=== PATIENT | female | born 1990 | race Caucasian/White ===

== ENCOUNTER 2016-09-02 17:30 | Emergency (ER) | payer OTHER ==
[~2016-09-02] VITALS: Ht 157.5 cm; Wt 108.4 kg
[~2016-09-02 17:30] MED LIST: INSDGI SC; NVLGI SC
[2016-09-02 17:33] VITALS: BP 145/91; PULSE 122; TEMP 36.9; O2SAT 97; Ht 157.5 cm; Wt 108.4 kg
[2016-09-02] MEDS ORDERED: SULFAMETHOXAZOLE/TRIMETHOPRIM DS 800/160MG TAB PO STA (17:56)
[2016-09-02] MEDS ORDERED: CEPHALEXIN MONOHYDRATE 250 MG CAP PO ONE (18:00)
[2016-09-02] MEDS ORDERED: NVLGI/PEN SC (18:06)
[2016-09-02] MEDS ORDERED: INSU1.2I SC (18:06)
[2016-09-02] MEDS ORDERED: HYDR-5688 PO (18:09)
[2016-09-02] MEDS ORDERED: CEPH500C PO (18:09)
[2016-09-02] MEDS ORDERED: SULF800T23 PO (18:09)
--- NOTE | 2016-09-02 18:09 | EMERGENCY ROOM VISIT NOTE ---
ED Visit Note First contact with patient: 17:37 Chief Complaint: Lumps Under Armpits History of Present Illness: Patient is a 26-year-old female who presents to the emergency department for evaluation of painful lumps under the LEFT armpit. She reports that 5 days ago she noticed a small lump to the affected area which was tender with palpation. Days ago she noticed a second lump developing. She does have a history of abscesses to her buttocks. She has never had abscesses in her axilla before. She is a diabetic. She reports that her blood sugars have actually been running a little lower than normal. She's had no fevers or chills. There is no numbness or tingling into the distal extremity. She did not attempt to drain the area. The patient rates her current discomfort as an 8 /10. She is tried nothing [id number] for her symptoms. She denies any neck pain, elbow pain, shoulder pain, or chest pain. Medications: Reviewed and discussed the patient. Allergies: No known allergies. PMH: Diabetes SHx: Patient is a 26-year-old female who lives locally. ROS: All pertinent positive and negative review of systems are appropriately documented in the History of Present Illness. Physical Exam: VITAL SIGNS - Vital signs and Nursing Notes were reviewed. GENERAL -26-year-old female, well-developed, well-nourished, and in no acute distress. SKIN -small indurated palpable lump noted to the LEFT axilla. Moderately tender to palpation. No fluctuance to palpation. No warmth to touch. Area is mobile. No palpable axillary lymphadenopathy. No palpable cords. No discharge or drainage. HEART - Regular rate and rhythm. Normal S1-S2. No murmurs, rubs, or gallops appreciated. LUNGS - CTA bilaterally. No wheezes, rales, or rhonchi appreciated. NEURO - Patient is A&Ox3 and communicates appropriately with the provider. ED Course: Patient was seen and evaluated by myself. I had a lengthy discussion with the patient regarding her symptoms and management this point. She has early abscesses to the LEFT axilla. There is no active drainage noted. There is no fever. The areas are not drainable at this point. She was encouraged to use warm compresses to the area. She was placed on Keflex and Bactrim given her history of abscesses and likely MRSA type infections. She was provided [place] for breakthrough pain at home. She'll follow-up with her primary care provider in 48 hours for recheck. She will return to the emergency department sooner in the setting of any changing or worsening symptoms. Patient discharged home afebrile and in good condition. In the evaluation and treatment of this patient, the following differential diagnoses were considered: Cellulitis, dermatitis, foreign body, lymphoma, amongst others. Impression: Early LEFT Axillary Abscesses Discharge Instructions: You were seen in the Emergency Department for early abscesses to the LEFT Axilla. Please follow-up with your primary care provider in 48 hours for recheck. Please apply warm compresses to the area for comfort. You have been prescribed [place] to be used for pain control. This is a narcotic medication. You cannot drive or consume alcohol while on this medicine. This medicine should only be used for pain that cannot be controlled with over-the- counter pain medicines. You were prescribed Keflex and Bactrim to be taken as prescribed. Both of these medications are antibiotics. Stop these medications and contact a medical provider if you were to develop any significant adverse side effects including: wheezing, shortness of breath, passing out, vomiting, or a diffuse rash. Always take antibiotics as directed and COMPLETE the ENTIRE course regardless of the improvement of your symptoms. Look for signs of infection of the wound including: increased pain, swelling, foul discharge, streaking, or increased temperature. If any of these are noticed you should return to the Emergency Department for further assessment and treatment. For pain control, you can use the following ybys-txp-[id number] medicines (if >12 yo): - Regular strength (325mg/tab) Tylenol (acetaminophen) 2 tabs every 4-6 hours as needed. Do not exceed 12 tablets in a 24 hour period. Avoid taking more than 4 grams (4000 mg) of Tylenol per day. This includes any other sources of acetaminophen you may take on a regular basis. - Regular strength (200 mg/tab) Advil (ibuprofen) 1-2 tabs every 4-6 hours as needed. Do not exceed a dose of 3200 mg per day. Return to the emergency department if your symptoms worsen despite treatment course outlined above. Current/Historical Medications Scheduled Cephalexin Monohydrate (Keflex), 500 MG PO TID Insulin Aspart (Novolog Flexpen), 1 DOSE SC UD Insulin Glargine (Toujeo Solostar), 50 UNITS SC HS Sulfa/Trimethoprim (Bactrim Ds 800MG/160MG), 1 TAB PO BID Scheduled PRN Hydrocodone/Acetaminophen 5MG/325MG ([place] 5MG/325MG), 1-2 TABLET PO Q4H PRN for Pain Allergies Coded Allergies: No Known Allergies (Unverified , 01/12/16) Vital Signs Date Time Temp Pulse Resp B/P Pulse Ox O2 Delivery O2 Flow Rate FiO2 09/02/16 17:33 36.9 122 18 145/91 97 Room Air Medications Administered Medications (Trade) Dose Ordered Sig/Nallely Route Start Time Stop Time Status Last Admin Dose Admin Cephalexin Monohydrate (Keflex Cap) 500 mg NOW ONCE PO 09/02/16 18:00 09/02/16 18:01 DC 09/02/16 18:04 500 MG Trimethoprim/ Sulfamethoxazole (Septra Ds 800/ 160MG Tab) 1 tab NOW STAT PO 09/02/16 17:56 09/02/16 17:57 DC 09/02/16 18:04 1 TAB Departure Information Impression Primary Impression: Cutaneous abscess of left axilla Dispostion Home / Self-Care Condition GOOD Prescriptions Hydrocodone/Acetaminophen 5MG/325MG ([place] 5MG/325MG) Tab 1-2 TABLET PO Q4H Y for Pain, #20 TAB For Initial Treatment Prov: Pepe Kelley PA-C 09/02/16 Sulfa/Trimethoprim (Bactrim Ds 800MG/160MG) Tab 1 TAB PO BID for 10 Days, #20 TAB Prov: Pepe Kelley PA-C 09/02/16 Cephalexin Monohydrate (Keflex) 500 Mg Cap 500 MG PO TID for 10 Days, #30 CAP Prov: Pepe eKlley PA-C 09/02/16 Referrals Bethanie Nowak M.D. (PCP) Patient Instructions My [facility] Additional Instructions You were seen in the Emergency Department for early abscesses to the LEFT Axilla. Please follow-up with your primary care provider in 48 hours for recheck. Please apply warm compresses to the area for comfort. You have been prescribed [place] to be used for pain control. This is a narcotic medication. You cannot drive or consume alcohol while on this medicine. This medicine should only be used for pain that cannot be controlled with over-the- counter pain medicines. You were prescribed Keflex and Bactrim to be taken as prescribed. Both of these medications are antibiotics. Stop these medications and contact a medical provider if you were to develop any significant adverse side effects including: wheezing, shortness of breath, passing out, vomiting, or a diffuse rash. Always take antibiotics as directed and COMPLETE the ENTIRE course regardless of the improvement of your symptoms. Look for signs of infection of the wound including: increased pain, swelling, foul discharge, streaking, or increased temperature. If any of these are noticed you should return to the Emergency Department for further assessment and treatment. For pain control, you can use the following coyr-bgo-[id number] medicines (if >12 yo): - Regular strength (325mg/tab) Tylenol (acetaminophen) 2 tabs every 4-6 hours as needed. Do not exceed 12 tablets in a 24 hour period. Avoid taking more than 4 grams (4000 mg) of Tylenol per day. This includes any other sources of acetaminophen you may take on a regular basis. - Regular strength (200 mg/tab) Advil (ibuprofen) 1-2 tabs every 4-6 hours as needed. Do not exceed a dose of 3200 mg per day. Return to the emergency department if your symptoms worsen despite treatment course outlined above.
== END 2016-09-02 18:13 | disposition home or self-care (01) ==
LOC: C.EDB 17:31
DX: L02.412 Cutaneous abscess of left axilla (principal); E11.9 Type 2 diabetes mellitus without complications; Z79.4 Long term (current) use of insulin

== ENCOUNTER 2016-09-09 09:18 | Emergency (ER) | payer OTHER ==
[~2016-09-09] VITALS: Ht 157.5 cm; Wt 109.5 kg
[~2016-09-09 09:18] MED LIST changes: +CEPH500C PO; +HYDR-5688 PO; -INSDGI SC; +INSU1.2I SC; -NVLGI SC; +NVLGI/PEN SC; +SULF800T23 PO
[2016-09-09 09:30] VITALS: TEMP 36.7; Ht 157.5 cm; Wt 109.5 kg
[2016-09-09 10:42] VITALS: BP 131/57; PULSE 66; O2SAT 99
--- NOTE | 2016-09-09 17:30 | EMERGENCY ROOM VISIT NOTE ---
ED Visit Note First contact with patient: 10:03 CHIEF COMPLAINT: Infection. HISTORY OF PRESENT ILLNESS: Ms. Zelaya is an 26-year-old white female who ambulates into the ED complaining of a left axillary abscess. Historically patient reports she has had multiple maxillary and pilonidal abscesses. She was seen in this ED on September 02 and was diagnosed with an early abscess in the left axillary area. She was to follow-up with her PCP which she did twice this week and each time the PCP did not feel the abscess was ready for drainage. 2 days ago she was referred to the ED for drainage. Currently patient reports she feels like her abscess is getting better but she is still having moderate pain in the axillary area. She describes her pain as a burning sensation. She rates her discomfort 8/10. The pain is nonradiating. 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 She has not identified any alleviating factors related to the pain. She has been intermittently using her prescribed [place] for pain with minimal relief of her discomfort. She denies any associated fevers, chills, sweats, other skin eruptions, other skin color changes, chest pain, shortness of breath, abdominal pain, nausea, vomiting, decreased appetite , left shoulder pain, left upper extremity weakness/numbness/tingling. REVIEW OF SYSTEMS: As noted above in History of Present Illness. All body systems were reviewed with the patient and found to be negative unless noted above otherwise. PAST MEDICAL HISTORY: Diabetes, unspecified skin disorder, asthma, bronchitis, pneumonia, status post wisdom teeth extraction, section and pilonidal abscess. CURRENT MEDICATION: Keflex, Bactrim, [place],, insulin ALLERGIES TO MEDICATION: Patient denies. SOCIAL HISTORY: Patient is not employed; she feels safe in her home environment ; she admits to tobacco use and denies alcohol use. PHYSICAL EXAM: Vital Signs: Date Time Temp Pulse Resp B/P Pulse Ox O2 Delivery O2 Flow Rate FiO2 09/09/16 10:42 66 14 131/57 99 09/09/16 09:30 36.7 93 20 135/87 97 Room Air General: 26 year-old white female in mild to moderate distress due to pain, nontoxic appearing, afebrile and hemodynamically stable. Neurological: Awake, alert and oriented to person, place and time. Answering questions appropriately and following commands. Skin: Warm, dry and pink. Left Axillary Area: There is an indurated area in the central portion of the axilla which measures about less than 1 cm in diameter. This area is mildly erythematous. There is no fluctuance or pointing. There is no drainage. There is no lymphangitis. There is no enlargement of the axillary lymph nodes. Thorax: Lungs sounds are clear to auscultation and equal bilaterally with symmetrical chest wall movement. No wheezing, rales or rhonchi. No increased respiratory effort. Abdomen: Flat, soft and nontender. Positive bowel sounds in all quadrants. No guarding or rigidity. ED COURSE: Patient is assessed as noted above. I lengthy conversation with the patient and felt there was no drainable abscess in the area at the current time. Patient was educated about tonight's findings and instructed on her treatment plan; she verbalizes understanding and agreement with this plan. CLINICAL IMPRESSION: Healing abscess of the left axillary area. DISPOSITION: Patient discharged to home in stable condition; prior to departure she was reassessed and subjectively reported she was feeling the same. PLAN: Patient was encouraged to continue her antibiotics as prescribed and finish all of her antibiotics. Patient was encouraged to use her [place] prescription as prescribed for pain. I did recommend that the patient use spray on deodorant, avoid shaving her axillary area and also use a Gil glide like gel in the area to avoid irritation. Patient was encouraged to follow-up with her PCP at the end of the course or antibiotics for reevaluation and possible referral to general surgery as needed. Patient was encouraged return the ED for worsening pain, increasing redness/ swelling, puslike drainage, red streaking, fevers or any new/concerning symptoms.
== END 2016-09-09 10:44 | disposition home or self-care (01) ==
LOC: C.EDB 09:21 → C.EDC 10:44
DX: L02.412 Cutaneous abscess of left axilla (principal); E11.9 Type 2 diabetes mellitus without complications; J45.909 Unspecified asthma, uncomplicated; Z79.4 Long term (current) use of insulin; F17.200 Nicotine dependence, unspecified, uncomplicated

== ENCOUNTER 2018-08-02 14:08 | Observation (INO) ==
[2018-08-02] MEDS ORDERED: ONDANSETRON INJ 2 MG/ML 2 ML VIAL IV STA (14:27)
[2018-08-02] MEDS ORDERED: SODIUM CHLORIDE 0.9% 1000ML 2,000 ML IV ONE (14:27)
[2018-08-02 14:49] LABS: Basophils # (auto) 0.01 K/uL (0-0.2); Basophils % (auto) 0.1 %; Eosinophils # (auto) 0.06 K/uL (0-0.5); Eosinophils % (auto) 0.5 %; Hematocrit (blood only) 41.4 % (37-47); Hemoglobin 14.2 g/dL (12.0-16.0); Immature Granulocytes # (auto) 0.11 K/uL (0.00-0.02); Immature Granulocytes % (auto) 0.9 %; Lymphocytes # (auto) 2.04 K/uL (1.2-3.4); Lymphocytes % (auto) 16.2 %; Mean Corpuscular Hgb Conc 34.3 g/dL (32-36); Mean Corpuscular Volume 89.4 fL (80-100); Mean Platelet Volume 10.4 fL (7.4-10.4); Monocytes % (auto) 5.6 %; Neutrophils # (auto) 9.68 K/uL (1.4-6.5); Neutrophils % (auto) 76.7 %; Platelet Count 225 K/uL (130-400); RDW Standard Deviation 45.5 fL (36.4-46.3); Red Blood Count 4.63 M/uL (4.2-5.4)
[2018-08-02 15:03] LABS: Albumin Level 2.8 gm/dl (3.4-5.0); BUN Creatinine Ratio 22.8 (10-20); Calcium 9.1 mg/dl (8.5-10.1); Creatinine Clr Calc Pharmacy 138.5 ml/min; Est GFR (African American) 131.2; Est GFR (Non-African American) 113.2; Potassium 4.2 mmol/L (3.5-5.1)
[2018-08-02 15:06] LABS: Albumin Globulin Ratio 0.6 (0.9-2); Bilirubin,Total 0.2 mg/dl (0.2-1); Globulin 4.4 gm/dl (2.5-4.0); Total Protein 7.2 gm/dl (6.4-8.2)
--- NOTE | 2018-08-02 15:06 | Emergency Department Note ---
History of Present Illness General Chief complaint: Referred by Doctor Stated complaint: SENT FROM [facility], 31 WEEKS Time Seen by Provider: 08/02/18 14:18 History of Present Illness This patient is a 28-year-old female who presents to the emergency department from her [facility] office for evaluation for nausea and vomiting over the last several weeks. The patient has a history of type 1 diabetes. During her OB ap pointment today, her blood sugars were noted to be elevated in the 200s. She also had ketones in her urine, which is why she was sent here for evaluation. The patient admits that her blood sugars have been elevated in the 200s-300 range almost the entire . A few weeks ago, her insurance, stopped covering her Humalog, and it was switched to Admelog. She notes that her nausea and vomiting started shortly thereafter. She denies any changes in her bowel movements. They have been regular. No fever or chills. No abdominal pain. No vaginal bleeding. She is still feeling good movement. The patient is with 2 spontaneous abortions. Home Medications Home Medications Medication Instructions Recorded Confirmed Type PNV cmb#95-ferrous fumarate-FA 1 tab PO HS 02/22/18 08/02/18 History [] albuterol sulfate [Ventolin HFA] 1 - 2 puff INHALATION UD 02/22/18 08/02/18 History sertraline 100 mg PO QPM 02/22/18 08/02/18 History aspirin [Aspirin Low Dose] 81 mg PO DAILY 08/02/18 08/02/18 History insulin detemir U-100 [Levemir 55 unit SUBCUT PM 08/02/18 08/02/18 History FlexTouch U-100 Insuln] insulin detemir U-100 [Levemir 55 unit SUBCUT QAM 08/02/18 08/02/18 History FlexTouch U-100 Insuln] insulin lispro [Admelog SoloStar 30 unit SUBCUT AC 08/02/18 08/02/18 History U-100 Insulin] Allergies Allergy/AdvReac Type Severity Reaction Status Date / Time metformin AdvReac Intermediate Nausea Unverified 08/02/18 14:34 insulin glargine AdvReac Rash Unverified 08/02/18 14:34 [From Sugar Montez] Past Med/Surg History Medical History Diabetes Family History Grandfather (Maternal) Diabetes Father Diabetes Mother Hypertension Grandfather (Maternal) Hypertension Grandfather (Paternal) Stroke Mother Cancer Social History marital status: Feels Safe at Home: Yes Smoking Status: Current every day smoker Hx Alcohol Use: No Hx Substance Use: No Review of Systems A total of 10 systems reviewed and were otherwise negative Physical Exam Vital Signs Vital Signs - 24 hr 08/02/18 14:10 08/02/18 18:00 08/02/18 18:07 Temperature 36.5 C 36.9 C Temperature Source Oral Sepsis Recent Fever Within 48 Hours No Sepsis New/Unexplained Change in Mental Status No Sepsis Action Taken by Nursing No Action Required Pulse Rate 128 H 103 H Pulse Rhythm Regular Pulse Strength Normal Respiratory Rate 20 22 Respiratory Effort / Characteristics Non-Labored Non-Labored Respiratory Depth Normal Respiratory Pattern Regular Blood Pressure 144/81 H 118/59 L Blood Pressure Mean 102 Blood Pressure Position Sitting Pulse Oximetry 96 Oxygen Delivery Method Room Air Room Air 08/02/18 19:22 08/02/18 19:23 Temperature 36.8 C Temperature Source Sepsis Recent Fever Within 48 Hours Sepsis New/Unexplained Change in Mental Status Sepsis Action Taken by Nursing Pulse Rate 101 H 101 H Pulse Rhythm Pulse Strength Respiratory Rate 18 Respiratory Effort / Characteristics Non-Labored Spontaneous Respiratory Depth Respiratory Pattern Blood Pressure 116/55 L 116/55 L Blood Pressure Mean Blood Pressure Position Pulse Oximetry Oxygen Delivery Method Constitutional WD/WN, vitals as above Eyes EOM intact bilaterally ENMT external ear and nose normal, oropharynx normal (Oral mucosa dry) Neck trachea midline Respiratory normal respiratory effort, lungs clear to auscultation Cardiovascular RRR, no murmur, no edema Gastrointestinal (Abdomen) normal bowel sounds, soft, nontender, no hepatosplenomegaly (Gravid) Musculoskeletal no cyanosis or clubbing, extremities motor strength 5/5 Skin no rashes, warm and dry Neurologic Alert and oriented x3. No focal motor deficits. Psychiatric Acting appropriately Course Patient was seen and examined Vital signs including blood pressure were reviewed medications list was verified with patient Labs were obtained, and a saline lock was established Zofran 4 mg IV and 2 L of normal saline were ordered Upon reevaluation, the patient was still complaining of nausea. I reviewed the workup. She and her significant other voiced understanding. The case was discussed with case management, [facility] The patient will be admitted by the [facility] service for further treatment A repeat BMP was ordered in addition to a VBG per hospitalist recommendations. Consultations Consultation #1: Dr. Kapadia Consultation #2: Dr. Edmonds Administered Medications Potassium Chloride/Sodium Chloride (Normal Saline W/20 Meq Kcl) 20 meq in 1,000 mls @ 200 mls/hr IV .Q5H MADDIE Stop: 08/03/18 04:29 Last Admin: 08/02/18 18:33 Dose: 200 mls/hr Documented by: [id number] Insulin Aspart (Novolog Flexpen) 0 units SC Q6H MADDIE Stop: 09/01/18 18:29 Last Admin: 08/02/18 18:46 Dose: 3 units Documented by: [id number] Cosigned by: [id number] Discontinued Medications Sodium Chloride (Nss 1000ml) 2,000 mls @ 999 mls/hr IV .Q2H1M ONE Stop: 08/02/18 16:27 Last Infusion: 08/02/18 17:34 Dose: 0 mls/hr Documented by: [id number] Admin: 08/02/18 14:40 Dose: 999 mls/hr Documented by: [id number] Insulin Aspart (Novolog Flexpen) 3 units SC ONE ONE Stop: 08/02/18 19:31 Last Admin: 08/02/18 19:53 Dose: 300 units Documented by: [id number] Cosigned by: [id number] Ondansetron HCl (Zofran) 4 mg IV NOW STA Stop: 08/02/18 14:28 Last Admin: 08/02/18 14:40 Dose: 4 mg Documented by: [id number] Medical Decision Making Medical Records Attestation: I reviewed the patient's medical records. Home Medications Current Medication List: was personally reviewed by me Laboratory Data Result diagrams: 08/02/18 14:30 08/02/18 20:01 Lab Results 08/02/18 08/02/18 08/02/18 Range/Units 14:30 14:30 15:26 WBC 12.60 H (4.8-10.8) K/uL RBC 4.63 (4.2-5.4) M/uL Hgb 14.2 (12.0-16.0) g/dL Hct 41.4 (37-47) % MCV 89.4 (80-100) fL MCH 30.7 (25-34) pg MCHC 34.3 (32-36) g/dL RDW Std Deviation 45.5 (36.4-46.3) fL RDW Coeff of Aretha 14.0 (11.5-14.5) % Plt Count 225 (130-400) K/uL MPV 10.4 (7.4-10.4) fL Immature Gran % (Auto) 0.9 % Neut % (Auto) 76.7 % Lymph % (Auto) 16.2 % [place] % (Auto) 5.6 % Eos % (Auto) 0.5 % Baso % (Auto) 0.1 % Immature Gran # (Auto) 0.11 H (0.00-0.02) K/uL Neut # (Auto) 9.68 H (1.4-6.5) K/uL Lymph # (Auto) 2.04 (1.2-3.4) K/uL [place] # (Auto) 0.70 H (0.11-0.59) K/uL Eos # (Auto) 0.06 (0-0.5) K/uL Baso # (Auto) 0.01 (0-0.2) K/uL VBG pH (7.36-7.41) VBG pCO2 (38-50) mmHg VBG pO2 mmHg VBG HCO3 mmol/L VBG O2 Saturation % VBG Base Excess mEq/L Barometric Pressure mm/Hg Sodium 131 L (136-145) mmol/L Potassium 4.2 (3.5-5.1) mmol/L Chloride 101 (98-107) mmol/L Carbon Dioxide 20 L (21-32) mmol/L Anion Gap 10.0 (3-11) BUN 16 (7-18) mg/dl Creatinine 0.72 (0.6-1.2) mg/dl Est Cr Clr Drug Dosing 138.5 ml/min Est GFR ( Amer) 131.2 Est GFR (Non-Af Amer) 113.2 BUN/Creatinine Ratio 22.8 H (10-20) Glucose 306 H (70-99) mg/dl POC Glucose (70-99) Calcium 9.1 (8.5-10.1) mg/dl Phosphorus (2.5-4.9) mg/dl Magnesium (1.8-2.4) mg/dl Total Bilirubin 0.2 (0.2-1) mg/dl AST 13 L (15-37) U/L ALT 20 (12-78) U/L Alkaline Phosphatase 100 (45-117) U/L Total Protein 7.2 (6.4-8.2) gm/dl Albumin 2.8 L (3.4-5.0) gm/dl Globulin 4.4 H (2.5-4.0) gm/dl Albumin/Globulin Ratio 0.6 L (0.9-2) Beta-Hydroxybutyric Acd 16.49 H (0.2-2.81) mg/dl Urine Color Yellow Urine Appearance Clear (Clear) Urine pH 5.5 (4.5-7.5) Ur Specific [employer] 1.037 H (1.000-1.030) Urine Protein Negative (Negative) Urine Glucose (UA) 3+ H (Negative) Urine Ketones 2+ H (Negative) Urine Blood Negative (Negative) Urine Nitrite Negative (Negative) Urine Bilirubin Negative (Negative) Urine Urobilinogen Negative (Negative) Ur Leukocyte Esterase Negative (Negative) 08/02/18 08/02/18 08/02/18 Range/Units 16:06 16:59 17:18 WBC (4.8-10.8) K/uL RBC (4.2-5.4) M/uL Hgb (12.0-16.0) g/dL Hct (37-47) % MCV (80-100) fL MCH (25-34) pg MCHC (32-36) g/dL RDW Std Deviation (36.4-46.3) fL RDW Coeff of Aretha (11.5-14.5) % Plt Count (130-400) K/uL MPV (7.4-10.4) fL Immature Gran % (Auto) % Neut % (Auto) % Lymph % (Auto) % [place] % (Auto) % Eos % (Auto) % Baso % (Auto) % Immature Gran # (Auto) (0.00-0.02) K/uL Neut # (Auto) (1.4-6.5) K/uL Lymph # (Auto) (1.2-3.4) K/uL [place] # (Auto) (0.11-0.59) K/uL Eos # (Auto) (0-0.5) K/uL Baso # (Auto) (0-0.2) K/uL VBG pH 7.38 (7.36-7.41) VBG pCO2 30 L (38-50) mmHg VBG pO2 53 mmHg VBG HCO3 18 mmol/L VBG O2 Saturation 85.8 % VBG Base Excess -6.1 mEq/L Barometric Pressure 735.3 mm/Hg Sodium 134 L (136-145) mmol/L Potassium 4.1 (3.5-5.1) mmol/L Chloride 102 (98-107) mmol/L Carbon Dioxide 17 L (21-32) mmol/L Anion Gap 15.0 H (3-11) BUN 16 (7-18) mg/dl Creatinine 0.50 L (0.6-1.2) mg/dl Est Cr Clr Drug Dosing 199.5 ml/min Est GFR ( Amer) > 150.0 Est GFR (Non-Af Amer) 130.8 BUN/Creatinine Ratio 31.8 H (10-20) Glucose 252 H (70-99) mg/dl POC Glucose 266 H (70-99) Calcium 9.1 (8.5-10.1) mg/dl Phosphorus (2.5-4.9) mg/dl Magnesium (1.8-2.4) mg/dl Total Bilirubin (0.2-1) mg/dl AST (15-37) U/L ALT (12-78) U/L Alkaline Phosphatase (45-117) U/L Total Protein (6.4-8.2) gm/dl Albumin (3.4-5.0) gm/dl Globulin (2.5-4.0) gm/dl Albumin/Globulin Ratio (0.9-2) Beta-Hydroxybutyric Acd (0.2-2.81) mg/dl Urine Color Urine Appearance (Clear) Urine pH (4.5-7.5) Ur Specific [employer] (1.000-1.030) Urine Protein (Negative) Urine Glucose (UA) (Negative) Urine Ketones (Negative) Urine Blood (Negative) Urine Nitrite (Negative) Urine Bilirubin (Negative) Urine Urobilinogen (Negative) Ur Leukocyte Esterase (Negative) 08/02/18 Range/Units 20:01 WBC (4.8-10.8) K/uL RBC (4.2-5.4) M/uL Hgb (12.0-16.0) g/dL Hct (37-47) % MCV (80-100) fL MCH (25-34) pg MCHC (32-36) g/dL RDW Std Deviation (36.4-46.3) fL RDW Coeff of Aretha (11.5-14.5) % Plt Count (130-400) K/uL MPV (7.4-10.4) fL Immature Gran % (Auto) % Neut % (Auto) % Lymph % (Auto) % [place] % (Auto) % Eos % (Auto) % Baso % (Auto) % Immature Gran # (Auto) (0.00-0.02) K/uL Neut # (Auto) (1.4-6.5) K/uL Lymph # (Auto) (1.2-3.4) K/uL [place] # (Auto) (0.11-0.59) K/uL Eos # (Auto) (0-0.5) K/uL Baso # (Auto) (0-0.2) K/uL VBG pH (7.36-7.41) VBG pCO2 (38-50) mmHg VBG pO2 mmHg VBG HCO3 mmol/L VBG O2 Saturation % VBG Base Excess mEq/L Barometric Pressure mm/Hg Sodium 133 L (136-145) mmol/L Potassium 4.1 (3.5-5.1) mmol/L Chloride 103 (98-107) mmol/L Carbon Dioxide 14 L (21-32) mmol/L Anion Gap 16.0 H (3-11) BUN 14 (7-18) mg/dl Creatinine 0.44 L (0.6-1.2) mg/dl Est Cr Clr Drug Dosing 229.6 ml/min Est GFR ( Amer) > 150.0 Est GFR (Non-Af Amer) 136.4 BUN/Creatinine Ratio 31.2 H (10-20) Glucose 238 H (70-99) mg/dl POC Glucose (70-99) Calcium 8.5 (8.5-10.1) mg/dl Phosphorus 3.4 (2.5-4.9) mg/dl Magnesium 1.5 L (1.8-2.4) mg/dl Total Bilirubin (0.2-1) mg/dl AST (15-37) U/L ALT (12-78) U/L Alkaline Phosphatase (45-117) U/L Total Protein (6.4-8.2) gm/dl Albumin (3.4-5.0) gm/dl Globulin (2.5-4.0) gm/dl Albumin/Globulin Ratio (0.9-2) Beta-Hydroxybutyric Acd (0.2-2.81) mg/dl Urine Color Urine Appearance (Clear) Urine pH (4.5-7.5) Ur Specific [employer] (1.000-1.030) Urine Protein (Negative) Urine Glucose (UA) (Negative) Urine Ketones (Negative) Urine Blood (Negative) Urine Nitrite (Negative) Urine Bilirubin (Negative) Urine Urobilinogen (Negative) Ur Leukocyte Esterase (Negative) Blood Pressure Blood Pressure Findings: Elevated blood pressure Blood Pressure Disposition: Referred to patients primary care provider MDM Narrative Differential diagnosis: Uncontrolled diabetes, DKA, viral GI illness, bacterial GI illness, bowel obstruction, pancreatitis, choledocholithiasis, cholecystitis, among others This patient is a 28-year-old female, 31 weeks that presents to the emergency department for evaluation of possible DKA. On exam, she was dehydrated. Her abdomen was benign. She was not febrile. She was tachycardic. She has had a long-standing, poorly controlled diabetes. Her labs reveal significant hyperglycemia. Bicarb is also slightly low. There is mild leukocytosis. There is concern for DKA. This was discussed at length with the [facility] service. They were comfortable keeping the patient here for further treatment. They requested that the hospitalist service be consulted to manage patient's diabetes. The hospital service was in agreement. Impression & Plan DKA (diabetic ketoacidoses) Discharge Plan Visit Data *Final* Discharge Date/Time: 08/02/18 17:55 Chief Complaint: Referred by Doctor Stated Complaint: SENT FROM OBGYN, 31 WEEKS ED Provider: Susan Flores ED Midlevel Provider: Ambar Weller Discharge Problem: DKA (diabetic ketoacidoses) Patient Disposition: Admitted As Inpatient Discharge Instructions Interventions: ED Discharge Assessment Last Done: 08/02/18 17:55
[2018-08-02 15:13] LABS: Beta-Hydroxybutyrate 16.49 mg/dl (0.2-2.81)
[2018-08-02 15:41] LABS: Appearance Urine Clear (Clear); Bilirubin Urine Negative (Negative); Blood Urine Negative (Negative); Color Urine Yellow; Glucose Urine UA 3+ (Negative); Ketones Urine 2+ (Negative); Leukocyte Esterase Urine Negative (Negative); Nitrite Urine Negative (Negative); Protein Urine Negative (Negative); Specific Gravity Urine 1.037 (1.000-1.030); Urobilinogen Urine Negative (Negative); pH Urine 5.5 (4.5-7.5)
[2018-08-02 17:33] LABS: Base Excess VBG -6.1 mEq/L; Oxygen Saturation VBG 85.8 %; pH VBG 7.38 (7.36-7.41)
[2018-08-02 17:37] LABS: BUN Creatinine Ratio 31.8 (10-20); Blood Urea Nitrogen 16 mg/dl (7-18); Calcium 9.1 mg/dl (8.5-10.1); Carbon Dioxide 17 mmol/L (21-32); Chloride 102 mmol/L (98-107); Creatinine Clr Calc Pharmacy 199.5 ml/min; Est GFR (African American) > 150.0; Est GFR (Non-African American) 130.8; Glucose 252 mg/dl (70-99); Potassium 4.1 mmol/L (3.5-5.1); Sodium 134 mmol/L (136-145)
--- NOTE | 2018-08-02 17:52 | Consultation ---
Date of Consultation August 02, 2018 Assessment & Plan (1) Nausea and vomitin28 y/o F Hx IDDM, smoker. The pt is 30 weeks . For the past week, she has had intermittent nausea, vomiting and poor PO intake. She describes ligamentous pain in her groin or lower abdomen but no acute abdominal pain. She has not had diarrhea or fevers. 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 Labs are additionally notable for hyponatremia and. He glucose on arrival to the ER was 266. She did not exhibit anion gap acidosis. The pt admits that her diabetes has been poorly controlled throughout her pregn ana maria with a blood glucose in the 2-300 range. 1) Nausea and vomiting x 1 week - the pt is admitted by obstetrics for hyperemesis - she will be treated with IVF and antiemetics - she is assigned to L&D for monitoring. 2) Hyperglycemia with ketosis. Does not meet DKA criteria. She will be placed on a SS as she states her current glucose is consistent with what it has been over the course of her . While this certainly poses a threat to health over the long-term, it would not necessarily affect short-term management. 3) Hyponatremia and ketosis. She is likely dehydrated. Hyponatremia can occur with but is normally associated with eclampsia. We will provide IVF and trend a BMP Q4H. Her hyponatremia is mild and corrected from 131 to 134 with a litre of IVF in the ER. 4) Issues related to her are deffered to OBGYN. 5) She has been advised repeatedly on smoking cessation. Total time for this consult including review of labs, meds, records - discussion with pt, ER attending, obstetrics - 35 min Present on Admission?: Yes History of Present Illness Reason for Consultation: Hyperglycemia, hypernatremia, N/V History of Present Illness 28 y/o F Hx IDDM, smoker. The pt is 30 weeks . For the past week, she has had intermittent nausea, vomiting and poor PO intake. She describes ligamentous pain in her groin or lower abdomen but no acute abdominal pain. She has not had diarrhea or fevers. 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 Labs are additionally notable for hyponatremia and. He glucose on arrival to the ER was 266. She did not exhibit anion gap acidosis. The pt admits that her diabetes has been poorly controlled throughout her with a blood glucose in the 2-300 range. PMH: 1) DM I 2) Smoker 3) G5, P2 with two healthy deliveries via C section and 2 spontaneous abortions Surgical: x 2 Social: Daily smoker, dos not drink alcohol Family: Father with DM, mother with CAD Allergies Allergy/AdvReac Type Severity Reaction Status Date / Time metformin AdvReac Intermediate Nausea Unverified 08/02/18 14:34 insulin glargine AdvReac Rash Unverified 08/02/18 14:34 [From Sugar Montez] Home Medications Home Medications Medication Instructions Recorded Confirmed Type PNV cmb#95-ferrous fumarate-FA 1 tab PO HS 02/22/18 08/02/18 History [] acetaminophen [Tylenol Extra 500 mg PO Q6H PRN 02/22/18 08/02/18 History Strength] albuterol sulfate [Ventolin HFA] 1 - 2 puff INHALATION UD 02/22/18 08/02/18 History sertraline 100 mg PO QPM 02/22/18 08/02/18 History aspirin [Aspirin Low Dose] 81 mg PO DAILY 08/02/18 08/02/18 History insulin detemir U-100 [Levemir 55 unit SUBCUT PM 08/02/18 08/02/18 History FlexTouch U-100 Insuln] insulin detemir U-100 [Levemir 55 unit SUBCUT QAM 08/02/18 08/02/18 History FlexTouch U-100 Insuln] insulin lispro [Admelog SoloStar 30 unit SUBCUT AC 08/02/18 08/02/18 History U-100 Insulin] rizatriptan 10 mg PO UD PRN 08/02/18 08/02/18 History Patient History Medical History Diabetes Social History Feels Safe at Home: Yes Smoking Status: Current every day smoker Review of Systems Gen: Denies fevers, night sweats, rigors, fatigue, malaise, weight loss/gain ENT: Denies congestion, throat pain, hearing loss Eyes: Denies acute visual changes CV: Denies CP, palpitations Pulmonary: Denies SOB, cough, wheezing GI: Nausea, vomiting, poor PO intake as per HPI Neuro: Denies acute or unilateral weakness, acute gait impairment, headache or acute visual changes Musculoskeletal: Denies joint pain, inflammation Endocrine: Denies polydipsia, polyuria Skin: Denies acute rashes or ulcers Physical Exam Vital Signs (Past 24 Hours): Last Vital Signs Temp 36.5 C 08/02/18 14:10 Pulse 128 H 08/02/18 14:10 Resp 20 08/02/18 14:10 BP 144/81 H 08/02/18 14:10 Pulse Ox 96 08/02/18 14:10 Physical Exam: General: AAO x 3, no distress ENT: No erythema or exudates, no thrush Eyes: ANA, EOMI Head and neck: Normocephalic, atraumatic, No JVD, neck is supple. Chest/heart: Nontender, S1,2, RRR, no murmurs, no gallops Lungs: CTAB, no wheezing or crackles Abdomen: Distended/, nontender abdomen Neuro: AAO x 3, speech is clear, no unilateral weakness or loss of sensation, coordination intact Musculoskeletal: No joint inflammation, muscle tenderness, FROM Skin: No acute rashes or ulcers Extremities: No clubbing, cyanosis, edema
--- NOTE | 2018-08-02 18:18 | History & Physical Report ---
Date of Service August 02, 2018 Assessment & Plan (1) 30 weeks gestation of : (2) Type 1 diabetes mellitus affecting in third trimester, antepartum: (3) Poorly controlled diabetes mellitus: management of dm per hospitalist. i spoke to md print production manager in ER and aware I would like to monitor pt in LD, spoke to [place] [facility] [place]. fhts categ 1 and reassuring. pt aware. History of Present Illness Chief Complaint: sent from office with josen for DKA Primary Care Provider: NO PCP 28yo at 30+wks egwendy presents to L&D with above cc after being evaluated in ER. Pt was seen for routine apt today but noted to MD that she has felt unwell for past 2wks. On and off nausea and vomiting. Glucoses in 250s. +3 to +4 ketones. She denies urinary sx. Was sent to ER for evaluation of possible DKA. BSG was 300+ but anion gap normal. Hospitalist consulted to manage pt hyponatremia and elevated glucose and brought to L&D for monitoring. I had spoken to MFM at [facility] [place] met pt for consult on 05/30/18 about her situation and they recommended monitoring with threshold to tolerate fhts unless persistently categ 3 as correction of her metabolic status would improve fetus. Pt reports good fm last few days and today and no ctx rom or vb. She had EFW that was nl and nl fluid per my partner's documentation but I don't have actual US report. She has seen Endocrine in [place] previously but due to him leaving area and her persistent non compliance she has seen Endo at [facility] more recently. She is going to be followed/managed by them for . She had urine studies sent via office. I have spoken with hospitalist in ER about ob plan which is for monitoring. PNC c/b 1. Poorly controlled Type 1 DM, saw MFM, non compliant, had echo 2. Asthma 3. Arthritis 4. Common migraine 5. Tobacco use 6. 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 Concern re: MJ use 9. Morbid obesity PNL rh pos, ri OBH: sab x 2 c/s x 2 GYNH: nl paps, denies stds PMH: as above PSH: wisdom teeth, rectal abscess surgeries Allg: metformin, touejo Meds: insulin, vit D, albuterol, zoloft, asa, b12, SH: per above. no etoh FH: pts dad with chd Allergies Allergy/AdvReac Type Severity Reaction Status Date / Time metformin AdvReac Intermediate Nausea Unverified 08/02/18 14:34 insulin glargine AdvReac Rash Unverified 08/02/18 14:34 [From Sugar Montez] Home Medications Home Medications Medication Instructions Recorded Confirmed Type PNV cmb#95-ferrous fumarate-FA 1 tab PO HS 02/22/18 08/02/18 History [] acetaminophen [Tylenol Extra 500 mg PO Q6H PRN 02/22/18 08/02/18 History Strength] albuterol sulfate [Ventolin HFA] 1 - 2 puff INHALATION UD 02/22/18 08/02/18 History sertraline 100 mg PO QPM 02/22/18 08/02/18 History aspirin [Aspirin Low Dose] 81 mg PO DAILY 08/02/18 08/02/18 History insulin detemir U-100 [Levemir 55 unit SUBCUT PM 08/02/18 08/02/18 History FlexTouch U-100 Insuln] insulin detemir U-100 [Levemir 55 unit SUBCUT QAM 08/02/18 08/02/18 History FlexTouch U-100 Insuln] insulin lispro [Admelog SoloStar 30 unit SUBCUT AC 08/02/18 08/02/18 History U-100 Insulin] rizatriptan 10 mg PO UD PRN 08/02/18 08/02/18 History Patient History Medical History Diabetes Social History Feels Safe at Home: Yes Smoking Status: Current every day smoker Physical Exam Vital Signs (Past 24 Hours): Last Vital Signs Temp 36.5 C 08/02/18 14:10 Pulse 128 H 08/02/18 14:10 Resp 20 08/02/18 14:10 BP 144/81 H 08/02/18 14:10 Pulse Ox 96 08/02/18 14:10 Constitutional: WD/WN, vitals as above Gastrointestinal (Abdomen): soft gravid obese nt Genitourinary: OB Exam Monitor Tracing: + external FHT monitor used (150 mod variability. ), + external uterine monitor used (no ctx), + category I and + normal FHT variability
[2018-08-02] MEDS: NSS + 20MEQ KCL 20 MEQ/1,000 ML BAG IV SCH (18:33)
[2018-08-02] MEDS: INSULIN ASPART 100 UNITS/ML 3 ML PEN SC SCH (18:46)
[2018-08-02] MEDS ORDERED: Nursing to Pharmacy Communication ONE (19:30)
[2018-08-02] MEDS ORDERED: INSULIN ASPART 100 UNITS/ML 3 ML PEN SC ONE (19:30)
[2018-08-02] MEDS ORDERED: DEXTROSE 50% 50 ML SYRINGE IV PRN (19:45)
[2018-08-02] MEDS ORDERED: GLUCAGON FOR INJ 1 MG VIAL IM PRN (19:45)
[2018-08-02] MEDS ORDERED: CARBOHYDRATES FOR HYPOGLYCEMIA PO PRN (19:45)
[2018-08-02] MEDS ORDERED: GLUCOSE 10 TABS/TUBE PO PRN (19:45)
[2018-08-02] MEDS ORDERED: GLUCOSE 40% GEL 15 GM TUBE PO PRN (19:45)
[2018-08-02 20:25] LABS: BUN Creatinine Ratio 31.2 (10-20); Blood Urea Nitrogen 14 mg/dl (7-18); Calcium 8.5 mg/dl (8.5-10.1); Carbon Dioxide 14 mmol/L (21-32); Chloride 103 mmol/L (98-107); Creatinine Clr Calc Pharmacy 229.6 ml/min; Est GFR (African American) > 150.0; Est GFR (Non-African American) 136.4; Glucose 238 mg/dl (70-99); Magnesium 1.5 mg/dl (1.8-2.4); Phosphorus 3.4 mg/dl (2.5-4.9); Potassium 4.1 mmol/L (3.5-5.1); Sodium 133 mmol/L (136-145)
[2018-08-02] MEDS ORDERED: ONDANSETRON INJ 2 MG/ML 2 ML VIAL IV PRN (20:54)
[2018-08-02] MEDS: ONDANSETRON INJ 2 MG/ML 2 ML VIAL IV PRN (21:16)
[2018-08-02] MEDS ORDERED: ACETAMINOPHEN 325 MG TAB PO PRN (23:40)
[2018-08-03] MEDS: NSS + 20MEQ KCL 20 MEQ/1,000 ML BAG IV SCH (00:09)
[2018-08-03] MEDS: INSULIN ASPART 100 UNITS/ML 3 ML PEN SC SCH ×2 (00:30→06:24)
[2018-08-03 00:41] LABS: BUN Creatinine Ratio 27.2 (10-20); Blood Urea Nitrogen 13 mg/dl (7-18); Calcium 8.1 mg/dl (8.5-10.1); Carbon Dioxide 13 mmol/L (21-32); Chloride 106 mmol/L (98-107); Creatinine Clr Calc Pharmacy 214.9 ml/min; Est GFR (African American) > 150.0; Est GFR (Non-African American) 133.5; Glucose 239 mg/dl (70-99); Potassium 4.3 mmol/L (3.5-5.1); Sodium 133 mmol/L (136-145)
[2018-08-03] MEDS: ONDANSETRON INJ 2 MG/ML 2 ML VIAL IV PRN (01:19)
[2018-08-03] MEDS ORDERED: PROMETHAZINE HCL 25 MG in SODIUM CHLORIDE 0.9% 50 ML IV PRN (01:45)
[2018-08-03 04:42] LABS: BUN Creatinine Ratio 23.5 (10-20); Blood Urea Nitrogen 12 mg/dl (7-18); Calcium 8.1 mg/dl (8.5-10.1); Carbon Dioxide 12 mmol/L (21-32); Chloride 108 mmol/L (98-107); Creatinine Clr Calc Pharmacy 198.1 ml/min; Est GFR (African American) > 150.0; Est GFR (Non-African American) 129.9; Glucose 237 mg/dl (70-99); Magnesium 1.6 mg/dl (1.8-2.4); Potassium 4.7 mmol/L (3.5-5.1); Sodium 134 mmol/L (136-145)
--- NOTE | 2018-08-03 05:45 | Obstetrical Progress Note ---
Date of Service August 03, 2018 Assessment & Plan (1) 30 weeks gestation of : monitoring continues, baby looks well. (2) Type 1 diabetes mellitus affecting in third trimester, antepartum: (3) Poorly controlled diabetes mellitus: (4) DKA (diabetic ketoacidoses): management per hospitalist. Subjective pt having on and off n/v. having montero before but that is better. bsgs in 250. that is sort of where her bsgs usually are these past 2wks. before that more in 170 or below Physical Exam Vital Signs (Past 24 Hours): Last Vital Signs Temp 36.8 C 08/02/18 23:32 Pulse 107 H 08/03/18 05:38 Resp 18 08/02/18 23:32 BP 123/59 L 08/02/18 23:32 Pulse Ox 97 08/03/18 05:38 Constitutional: WD/WN, vitals as above Gastrointestinal (Abdomen): soft gravid nt Genitourinary: OB Exam Monitor Tracing: + external FHT monitor used (150 mod variability), + external uterine monitor used (no contractions), + category I and + normal FHT variability (1) DKA (diabetic ketoacidoses) Diabetes mellitus type: type 1
[2018-08-03] MEDS: FAMOTIDINE 20 MG in SYRINGE 3 ML IV ONE (06:25)
[2018-08-03] MEDS: SODIUM CHLORIDE 0.9% 1000ML 1,000 ML IV SCH ×2 (07:01→11:58)
[2018-08-03] MEDS ORDERED: PHARMACY GLYCEMIC MGMT CONSULT PRN (07:34)
[2018-08-03] MEDS ORDERED: INSULIN DETEMIR FLEXPEN/FLEX TOUCH 100 UNITS/ML 3ML SC SCH (08:00)
[2018-08-03 08:11] LABS: Allen Test POS (Pos); HCO3 ABG 9 mmol/L (19-24); Oxygen Saturation ABG 97.9 % (90-95); PCO2 ABG 21 mmHg (35-46); PO2 ABG 109 mm/Hg (80-95); pH ABG 7.27 (7.35-7.45)
[2018-08-03] MEDS ORDERED: INSULIN DETEMIR FLEXPEN/FLEX TOUCH 100 UNITS/ML 3ML SC ONE (08:15)
[2018-08-03] MEDS ORDERED: INSULIN ASPART 100 UNITS/ML 3 ML PEN SC ONE (08:30)
[2018-08-03 08:34] LABS: BUN Creatinine Ratio 19.8 (10-20); Calcium 8.7 mg/dl (8.5-10.1); Creatinine Clr Calc Pharmacy 168.4 ml/min; Est GFR (African American) 142.8; Est GFR (Non-African American) 123.2; Magnesium 1.8 mg/dl (1.8-2.4); Potassium 5.2 mmol/L (3.5-5.1)
--- NOTE | 2018-08-03 09:50 | Pharmacy Report ---
Glycemic Control Consultation - Date of Service August 03, 2018 - Scope Scope: Glycemic Pharmacist consulted by Dr Aldridge on 08/03 for glycemic control and to write orders per [facility] inpatient glycemic control protocol - Objective Weight: 119.295 kg Accuchecks BSG (last 24hrs): 08/02/18 08/02/18 08/02/18 14:30 16:06 16:59 Glucose 306 H 252 H POC Glucose 266 H 08/02/18 08/02/18 08/02/18 18:39 20:01 23:31 Glucose 238 H POC Glucose 253 H 231 H 08/03/18 08/03/18 08/03/18 00:16 00:23 04:10 Glucose 239 H 237 H POC Glucose 246 H 08/03/18 08/03/18 08/03/18 06:21 07:40 08:36 Glucose 265 H POC Glucose 261 H 258 H Laboratory Data (last 24hrs): 08/02/18 08/02/18 08/02/18 14:30 16:59 20:01 Potassium 4.2 4.1 4.1 Carbon Dioxide 20 L 17 L 14 L Anion Gap 10.0 15.0 H 16.0 H Creatinine 0.72 0.50 L 0.44 L Est Cr Clr Drug Dosing 138.5 199.5 229.6 Beta-Hydroxybutyric Acd 16.49 H 08/03/18 08/03/18 08/03/18 00:16 04:10 07:40 Potassium 4.3 4.7 5.2 H Carbon Dioxide 13 L 12 L 11 L Anion Gap 14.0 H 14.0 H 17.0 H Creatinine 0.47 L 0.51 L 0.60 Est Cr Clr Drug Dosing 214.9 198.1 168.4 Beta-Hydroxybutyric Acd - Recent Pertinent Medications Outpatient Anti-diabetic Regimen: * Levemir 55 units BID * Admelog 30 units w/ meals + sliding scale * TDD = 200+ units The patient is currently receiving: * Basal insulin: None - last dose of Levemir was yesterday morning * Correctional Insulin: Novolog Correction per scale ACHS Goal Range: Low mg/dL - High mg/dL Correction Factor: 40 mg/dL/unit * Prandial insulin: Per carb ratio of 1 unit per -- grams CHO consumed - Assessment & Plan Assessment & Plan: ASSESSMENT: * Patient is a 28 y/o female with type 1 diabetes, currently 30 weeks . She was admitted last evening for nausea/vomiting/poor po intake over the last few days and concern for DKA; however, her labs did not indicate DKA upon admission. She was only continued on correctional insulin, and labs have continued to trend towards DKA as of this AM, because of the lack of basal insulin in a type 1 diabetic. I spoke with Dr. Aldridge this AM and because labs didn't look too bad, the plan was to resume basal insulin and be more aggressive with short-acting insulin to prevent DKA. Blood gas and PRP were also recommended to assess where we were this AM. * After review of AM labs, patient is in mild DKA (pH = 7.27, AG 17, bicarb 11). I spoke with Dr. Aldridge again and decision was made to initiate an insulin drip. This will hopefully only be needed for a short period of time until SQ insulin on board, allowing for the DKA to resolve. Of note, patient ate breakfast this morning without vomiting and looks well per nursing and physi jean. PLAN FOR INPATIENT GLYCEMIC CONTROL: * Starting IV insulin infusion per moderate stress protocol * Goal Range 150 - 200 mg/dl -> goal range selected as BSG already less than 250 mg/dL * Fluids are currently NS @ 200 cc/hr. If BSGs start to drop while on insulin drip, will need to incorporate dextrose to allow for ketonemia to resolve. With patient being on a diet and tolerating it, may not need this. * Basal insulin * Levemir 50 units x 1 this AM - higher dose given since I confirmed patient missed her 55 units last evening * Lantus 25 units BID - continue while on the insulin drip to aid with transition back to SQ once off the drip. If po intake improves, will increase back to outpatient dose. * Bolus insulin * NovoLog PCHS per insulin drip calculator * Novolog ACHS order on hold while on insulin drip * Goal 100-140 * CF 10 mg/dL/unit * CR 1 unit per 4 gm CHO consumed * Please note that the plan above was derived based on current level of insulin resistance and hospital stress. These recommendations are appropriate for inpatient admission only. Plan of care upon discharge will need to be reassessed to avoid potential outpatient hypo/hyperglycemia. Thank you.
[2018-08-03] MEDS ORDERED: INSULIN PROTOCOL GOAL RANGE ONE (10:08)
[2018-08-03] MEDS ORDERED: MODERATE STRESS LEVEL ONE (10:08)
[2018-08-03] MEDS ORDERED: INSULIN HUMAN REGULAR IV BOLUS 3 UNITS in SYRINGE 0 ML IV ONE (10:15)
[2018-08-03] MEDS ORDERED: INSULIN REGULAR 250 UNITS in SODIUM CHLORIDE 0.9% 247.5 ML IV SCH (10:15)
[2018-08-03] MEDS ORDERED: INSULIN ASPART 100 UNITS/ML 3 ML PEN SC SCH ×2 (10:30→13:00)
[2018-08-03 12:04] LABS: Albumin Globulin Ratio 0.6 (0.9-2); Albumin Level 2.6 gm/dl (3.4-5.0); BUN Creatinine Ratio 19.6 (10-20); Bilirubin,Total 0.2 mg/dl (0.2-1); Calcium 8.6 mg/dl (8.5-10.1); Creatinine Clr Calc Pharmacy 187.1 ml/min; Est GFR (African American) 147.8; Est GFR (Non-African American) 127.5; Globulin 4.1 gm/dl (2.5-4.0); Potassium 4.2 mmol/L (3.5-5.1); Total Protein 6.7 gm/dl (6.4-8.2)
--- NOTE | 2018-08-03 12:24 | Obstetrical Progress Note ---
Date of Service August 03, 2018 Assessment & Plan (1) DKA (diabetic ketoacidoses): Anion gap continues to show acidosis. Discussed case with hospitalist, Dr. Hare. Progress not being made in the management of her diabetic acidosis. heart rate tracing category 1 Discussed the case with maternal medicine in [place], they agreed to accept the patient in transportation. Will arrange transport by ambulance, all questions answered of the patient. Permit has been signed. Subjective Patient still with heartburn, no recent nausea and vomiting. Physical Exam Vital Signs (Past 24 Hours): Last Vital Signs Temp 36.5 C 08/03/18 11:49 Pulse 113 H 08/03/18 11:49 Resp 20 08/03/18 11:49 BP 129/71 08/03/18 11:49 Pulse Ox 99 08/03/18 07:58 (1) DKA (diabetic ketoacidoses) Diabetes mellitus type: type 1
--- NOTE | 2018-08-03 13:25 | Discharge Summary ---
Date of Service August 03, 2018 Admission HPI Per Admitting Provider 28yo at 30+wks allison presents to L&D with above cc after being evaluated in ER. Pt was seen for routine apt today but noted to MD that she has felt unwell for past 2wks. On and off nausea and vomiting. Glucoses in 250s. +3 to +4 ketones. She denies urinary sx. Was sent to ER for evaluation of possible DKA. BSG was 300+ but anion gap normal. Hospitalist consulted to manage pt hyponatremia and elevated glucose and brought to L&D for monitoring. I had spoken to MFM at [facility] who met pt for consult on 05/30/18 about her situation and they recommended monitoring with threshold to tolerate fhts unless persistently categ 3 as correction of her metabolic status would improve fetus. Pt reports good fm last few days and today and no ctx rom or vb. She had EFW that was nl and nl fluid per my partner's documentation but I don't have actual US report. She has seen Endocrine in [place] previously but due to him leaving area and her persistent non compliance she has seen Endo at [facility] more recently. She is going to be followed/managed by them for . She had urine studies sent via office. I have spoken with hospitalist in ER about ob plan which is for monitoring. PNC c/b 1. Poorly controlled Type 1 DM, saw MFM, non compliant, had echo 2. Asthma 3. Arthritis 4. Common migraine 5. Tobacco use 6. 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 Concern re: MJ use 9. Morbid obesity PNL rh pos, ri OBH: sab x 2 c/s x 2 GYNH: nl paps, denies stds PMH: as above PSH: wisdom teeth, rectal abscess surgeries Allg: metformin, touejo Meds: insulin, vit D, albuterol, zoloft, asa, b12, SH: per above. no etoh FH: pts dad with chd Discharge Data Consultations 08/02/18 16:46 Consult Hospitalist Stat 08/02/18 17:25 ED Decision to Admit Stat Hospital Course (1) DKA (diabetic ketoacidoses): The patient was brought to labor and delivery for continuous heart rate monitoring. The hospitalist service was consulted to manage the patient's diabetic ketoacidosis. Laboratory values for the DKA showed an arterial blood gas of 7.27 with anion gap of 16. Attempts at trying to bring the patient's sugars under control were only mildly successful. Because of the need for continuous heart rate monitoring and the difficulty of management of the and the DKA, the patient was transported to the [facility] for management of. Dr. Antonio, [facility] at [place], accepted the patient in transportation. The patient was apprised of the need for transport and consented. She was sent on a insulin dosage of 3 units/h as well as the continued normal saline at 200 cc/h. All medical records were copied and sent with the patient.
--- NOTE | 2018-08-19 13:04 | Hospitalist Progress Note ---
Date of Service August 19, 2018 Assessment & Plan (1) Nausea and vomitin28 y/o F Hx IDDM, smoker. The pt is 30 weeks . For the past week, she has had intermittent nausea, vomiting and poor PO intake. She describes ligamentous pain in her groin or lower abdomen but no acute abdominal pain. She has not had diarrhea or fevers. She presented to her manager cath lab today and was directed to the hospital due to an elevated blood glucose and ketones in her urine. Labs are additionally notable for hyponatremia and. He glucose on arrival to the ER was 266. She did not exhibit anion gap acidosis. The pt admits that her diabetes has been poorly controlled throughout her with a blood glucose in the 2-300 range. 1) Nausea and vomiting x 1 week - the pt is admitted by obstetrics for hyperemesis - she will be treated with IVF and antiemetics - she is assigned to L&D for monitoring. 2) Hyperglycemia with ketosis. Does not meet DKA criteria. She will be placed on a SS as she states her current glucose is consistent with what it has been over the course of her . While this certainly poses a threat to health over the long-term, it would not necessarily affect short-term management. 3) Hyponatremia and ketosis. She is likely dehydrated. Hyponatremia can occur with but is normally associated with eclampsia. We will provide IVF and trend a BMP Q4H. Her hyponatremia is mild and corrected from 131 to 134 with a litre of IVF in the ER. 4) Issues related to her are deffered to OBGYN. 5) She has been advised repeatedly on smoking cessation. Total time for this consult including review of labs, meds, records - discussion with pt, ER attending, obstetrics - 35 min Subjective pt was seen in the am feeling better but with progression to DKA Constitutional: + fatigue and + weakness Respiratory: no cough, no chest congestion and no dyspnea Cardiovascular: no chest pain and no dyspnea on exertion Gastrointestinal: no abdominal pain, no nausea and no vomiting Musculoskeletal: no joint pain and no swelling Integumentary: no rash and no lesions Physical Exam Vital Signs (Past 24 Hours): Last Vital Signs Temp 36.5 C 08/03/18 14:43 Pulse 113 H 08/03/18 11:49 Resp 20 08/03/18 14:43 BP 129/71 08/03/18 11:49 Pulse Ox 99 08/03/18 14:43
== END 2018-08-03 13:30 | disposition short-term general hospital (02) ==
LOC: 4S1 14:08 → ED 14:08 → 4S1 17:55